=== PATIENT | male | born 1945 | race Native Hawaiian/Other Pacific Islander ===

== ENCOUNTER 2016-09-14 10:34 | Outpatient (CLI) | payer OTHER ==
[~2016-09-14 10:34] MED LIST: ACTOS15 MG PO; CLONIDINE0.1 MG PO; DIOVAN HCT320 MG/25 PO; ENTERIC COATED325 MG; FURO40TA93 PO; GLYB6TAB PO; LISI20TA11 PO; METO100T37 PO; POTA20TA4 PO; SIMV40TA57; SIMV40TA57 PO
[2016-09-14 10:57] LABS: PLATELET COUNT 239 K/uL (142-355)
[2016-09-14 11:36] LABS: POTASSIUM 3.6 mmol/L (3.6-5.2)
== END 2016-09-14 11:40 | disposition home or self-care (01) ==
LOC: LABW 10:34
PROVIDERS: Internal Medicine
DX: E11.9 Type 2 diabetes mellitus without complications (principal); Z12.5 Encounter for screening for malignant neoplasm of prostate
CPT/HCPCS: 36415; 80053; 81000; 82043; 82570; 83036; 84153; 84443; 85027

== ENCOUNTER 2017-03-09 10:34 | Outpatient (CLI) | payer OTHER ==
[2017-03-09 11:16] LABS: PLATELET COUNT 281 K/uL (142-355)
[2017-03-09 13:16] LABS: POTASSIUM 3.6 mmol/L (3.6-5.2)
== END 2017-03-09 11:35 | disposition home or self-care (01) ==
LOC: LABW 10:34
PROVIDERS: Internal Medicine
DX: E11.9 Type 2 diabetes mellitus without complications (principal)
CPT/HCPCS: 36415; 80053; 80061; 81000; 82043; 82570; 83036; 84439; 84443; 85027

== ENCOUNTER 2018-01-25 11:26 | Outpatient (CLI) | payer OTHER | END 2018-01-25 21:53 | disposition home or self-care (01) | LOC: LABW 11:26 | DX: G45.9 Transient cerebral ischemic attack, unspecified (principal); E11.9 Type 2 diabetes mellitus without complications | CPT/HCPCS: 36415; 83090; 85651; 86039 ==

== ENCOUNTER 2018-04-09 08:48 | Outpatient (CLI) | payer OTHER | END 2018-04-09 22:17 | disposition home or self-care (01) | LOC: US 08:48 → MRI 08:48 | DX: I69.322 Dysarthria following cerebral infarction (principal); I71.4 Abdominal aortic aneurysm, without rupture; Z13.6 Encounter for screening for cardiovascular disorders; I65.23 Occlusion and stenosis of bilateral carotid arteries ==